=== PATIENT | female | born 1985 | race Caucasian/White ===

== ENCOUNTER 2018-08-22 14:55 | Emergency (ER) | payer OTHER, MEDICAID ==
[~2018-08-22] VITALS: Ht 167.6 cm; Wt 68.0 kg
[2018-08-22] MEDS ORDERED: ERYTHROMYCIN E3.5 G3 OPHTHALMIC (15:49)
[2018-08-22 16:07] VITALS: BP 121/54
== END 2018-08-22 16:08 | disposition home or self-care (01) ==
LOC: M.ERS 14:55
DX: S05.02XA Injury of conjunctiva and corneal abrasion without foreign body, left eye, initial encounter (principal); X58.XXXA Exposure to other specified factors, initial encounter; Y93.89 Activity, other specified; Y92.89 Other specified places as the place of occurrence of the external cause; Y99.8 Other external cause status